=== PATIENT | male | born 1940 | race Caucasian/White ===

== ENCOUNTER → 2019-07-14 | Outpatient (CLI) | payer OTHER ==
--- NOTE | 2019-07-15 01:15 | REPPI ---
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 Technique: PA and lateral. Comparison: None. Findings: Evidence of prior sternotomy. Cardiac silhouette is normal. Mediastinum is grossly unremarkable. Lung [place] demonstrate chronic-appearing interstitial changes. No focal consolidation. No effusion. No pneumothorax. Skeletal structures demonstrate age-related changes. Impression: Chronic-appearing changes. No obvious acute process. Electronically Signed by Viet Nunez MD 07/15/2019 01:07 A
== END ==
LOC: M PLAIMG 11:35
PROVIDERS: ATTEND Internal Medicine Pulmonary Disease
DX: J68.4 Chronic respiratory conditions due to chemicals, gases, fumes and vapors (principal)

== ENCOUNTER → 2021-01-04 | Outpatient (CLI) | payer OTHER ==
--- NOTE | 2021-01-05 00:54 | REP ---
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 FINDINGS: The mediastinum and cardiac silhouette are normal. Prior sternotomy. The lung [place] demonstrate chronic appearing changes without acute consolidation, effusion, or pneumothorax. The skeletal structures are intact and normal. IMPRESSION: Chronic stable changes. No acute cardiopulmonary process. <Electronically signed by Viet Nunez > 01/05/21 0050
== END ==
LOC: M RAD 11:29
PROVIDERS: ATTEND Internal Medicine Pulmonary Disease
DX: Z57.39 Occupational exposure to other air contaminants (principal); Z98.890 Other specified postprocedural states

== ENCOUNTER → 2022-02-13 | Outpatient (CLI) | payer OTHER | LOC: M RAD 11:48 | PROVIDERS: ATTEND Internal Medicine Pulmonary Disease | DX: Z57.39 Occupational exposure to other air contaminants (principal) ==

== ENCOUNTER → 2023-02-19 | Outpatient (CLI) | payer OTHER | LOC: M RAD 11:10 | PROVIDERS: ATTEND Internal Medicine Pulmonary Disease | DX: Z57.39 Occupational exposure to other air contaminants (principal); Z95.1 Presence of aortocoronary bypass graft; M48.14 Ankylosing hyperostosis [Forestier], thoracic region ==